=== PATIENT | male | born 1970 | race Caucasian/White ===

== ENCOUNTER 2016-08-23 22:47 | Emergency (ER) | payer OTHER ==
--- NOTE | 2016-08-24 00:05 | DIAGNOSTIC IMAGING REPORT ---
PROCEDURE: XR WRIST MIN 3 VIEWS - RIGHT INDICATION: PAIN TECHNIQUE: Three views of the right wrist. COMPARISON: None. FINDINGS: Normal mineralization. No fractures. Normal osseous alignment. No suspicious soft-tissue calcification or radiodense foreign bodies. IMPRESSION: 1. Intact right wrist.
--- NOTE | 2016-08-24 00:12 | ED NURSING NOTES ---
Clinical Report - Nurses [facility] [address] [place] [address] 08/23/2016 22:52 Patient: JIMMY PELAEZ JR TRIAGE Triage time 23:01. Acuity: LEVEL 4. Chief Complaint: RIGHT UPPER EXTREMITY PAIN, SWELLING and NUMBNESS. --23:08 Sarah Ray R.N. 23:01 08/23/16. BP: 146/99 taken on the left arm, while lying. HR: 88 (regular and normal rate). RR: 18 (regular and unlabored). O2 saturation: 100% on room air. Temp: 98.1 F (oral). Pain level now: 09/19. --23:08 Sarah Ray R.N. Weight: 87.9 kg stated. Height/Length: 72 inches Per Patient. BMI: 26.3. --23:01 Sarah Ray R.N. Medications Morphine Sulfate ER Beads Oral, BID. --23:06 Sarah Ray R.N. Allergies NSAIDs. Definite Severe(vomiting) --23:06 Sarah Ray R.N. Methocarbamol. (chest pain) Sulfa Antibiotics. Definite Severe(rash) --23:07 Sarah Ray R.N. History Arrived by private vehicle. Historian: patient. Unaccompanied (delmy). No injury occurred. This occurred today (around 930). ( pt c/o numbness to right hand, no injury). 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 PAST MEDICAL HX: Tetanus status: unknown. SOCIAL HX: Light tobacco smoker (cigarette)- less than 1/2 a pack per day. Occasional alcohol use. Last drink was just prior to arrival, 4 hours ago. No drug use. No infectious disease exposure. ABUSE ASSESSMENT: No report of abuse. SELF HARM ASSESSMENT: A self harm assessment was performed. The patient answered "no" to the question "Have you recently felt down, depressed, or hopeless?", "Have you noticed less interest or pleasure in doing things?", "Do you have thoughts of harming or killing yourself?", "Are you here because you tried to hurt yourself?", "Have you ever tried to hurt yourself before today?", "Have you recently had thoughts about harming or killing others?" and "Do you have any dangerous items in your possession?". FALL RISK ASSESSMENT: Fall risk assessment completed. No fall risk identified. NUTRITIONAL RISK ASSESSMENT: The nutritional risk assessment revealed no deficiencies. FUNCTIONAL ASSESSMENT: Functional assessment: no impairments noted. LEARNING NEEDS ASSESSMENT: The learning needs assessment revealed no barriers. SKIN INTEGRITY ASSESSMENT: Skin integrity risk assessment completed. No skin integrity risk identified. --23:08 Sarah Ray R.N. PROBLEMS: Vertigo. Carpal Tunnel Syndrome. Low vitamin d. Hypercholesterolemia. Back Injury. Back Pain. Degeneration of lumbar intervertebral disc. Arthritis. --23:07 Sarah Ray R.N. ADDITIONAL SURGERIES: Carpal Tunnel Surgery. Neck Surgery. --23:07 Sarah Ray R.N. Interventions ID band on patient. To treatment room. --23:08 Sarah Ray R.N. PHYSICAL ASSESSMENT Ambulatory to room. GENERAL / NEURO / PSYCH: Oriented X 4. Alert. Appears in no acute distress. Appears in pain. EXTREMITIES: Neuro-vascular status intact to the extremity. No upper extremity edema. Right wrist. Right wrist: tenderness. Limited ROM secondary to pain. Right distal radius: tenderness. Limited ROM at the wrist secondary to pain. SKIN: Skin intact. Skin is warm and dry. --23:09 Sarah Ray R.N. NURSING PROGRESS NOTES Call light placed in reach. Side rails up x 1. Patient ready for evaluation- chart flagged. --23:09 Sarah Ray R.N. Patient walked to radiology with [employer]. (23:44). --23:44 Sarah Ray R.N. Velcro upper extremity splint applied to right wrist by nurse. Distal pulses intact, sensation intact and motor within normal limits. Two patient identifiers checked. Call light placed in reach. Side rails up x 1. Bed placed in lowest position. Brakes of bed on. --00:19 Sarah Ray R.N. DISPOSITION / DISCHARGE Departure time: 0014. Condition at departure: unchanged and stable. No learning barriers present. Discharge instructions provided and reviewed with the patient. Reviewed referral to a primary care physician for followup. Activity restrictions (minimal use of injured extremity) reviewed. Patient verbalized understanding. Written instructions provided in Bengali. No warning instructions or medication instructions. The patient was discharged home and unaccompanied at time of discharge. He left the Emergency Department ambulatory and via private vehicle. Patient driving. --00:21 Sarah Ray R.N. 00:19 08/24/16. BP: deferred. HR: deferred. RR: deferred. O2 saturation: deferred. Temp: deferred. Pain level now deferred. --00:21 Sarah Ray R.N. Locked/Released at 08/24/2016 0:21 by Sarah Ray R.N.
--- NOTE | 2016-08-24 00:12 | ED ORDER SUMMARY ---
..... Patient: JIMMY PELAEZ JR OrderSheet [facility] VisitID: [id number] [address] [place] [address] 46y, M Registration Date/Time: 08/23/2016 ORDER SHEET Weight: 87.9 kg (stated) Allergies: NSAIDs, Methocarbamol, Sulfa Antibiotics GENERAL ORDERS: Wrist 3 or 4V Right Urgent (23:42 08/23/2016 Svetlana MCKENNA) (23:43 Pilo Hair.NGarret) Splint (UE) (Right) (Velcro - wrist) (00:07 08/24/2016 Svetlana MCKENNA) (0:15 HSoule) MEDICATION ORDERS: IV FLUIDS: ORDER SHEET NOTES: [Electronically signed by Sarah Ray R.N. (00:21 08/24/2016)] [Electronically signed by Hitesh Berry MD (16:23 08/26/2016)] [Electronically locked/signed by Sarah Ray R.N. (00:08/24/2016)]
--- NOTE | 2016-08-24 00:12 | ED CLINICAL REPORT ---
Clinical Report - Physicians/Mid Levels [facility] [address] [place] [address] 08/23/2016 22:52 [id number] Time Seen: 23:32 Aug 14 2016. Arrived- By private vehicle. Historian- patient. CPT: ER phys charges level 3 (#[id number]). HISTORY OF PRESENT ILLNESS Chief Complaint: UPPER EXTREMITY PAIN and ALTERED SENSATION. This started today and is still present. Severity is described as being moderate in degree. The quality is noted to be aching, "pain" and similar to prior episodes. Symptoms located in the area of the right wrist. No sensory loss or motor loss. Patient notes the possibility of an injury. Mechanism of injury- (Pt was working on his car when the pain came on .). Similar symptoms previously: As bad. Diagnosis: carpal tunnel syndrome. Recent medical care: Not recently seen/assessed. REVIEW OF SYSTEMS No fever, chills, headache, sore throat or cough. No skin rash, enlarged lymph nodes, abdominal pain, nausea or vomiting. No diarrhea, black stools, difficulty with urination, urinary frequency or hematuria. All systems otherwise negative, except as recorded above. PAST HISTORY Vertigo. Carpal Tunnel Syndrome. Low vitamin d. Hypercholesterolemia. Back Injury. Back Pain. Degeneration of lumbar intervertebral disc. Arthritis. ADDITIONAL SURGERIES: Carpal Tunnel Surgery. Neck Surgery. Medications: Morphine Sulfate ER Beads Oral, BID. Allergies: Methocarbamol. (chest pain) NSAIDs. Definite Severe(vomiting) Sulfa Antibiotics. Definite Severe(rash). SOCIAL HISTORY Heavy tobacco smoker (cigarette)- less than 1 pack per day. Occasional alcohol use. ADDITIONAL NOTES The nursing notes have been reviewed. PHYSICAL EXAM Vital Signs: 08/23/2016 23:01 BP: 146/99. HR: 88. RR: 18. O2 saturation: 100%. Temp: 98.1 F. Pain level now: 8/10. Appearance: Alert. Anxious. Patient in mild distress. Eyes: Eyes normal inspection. ENT: Pharynx normal. Neck: Normal inspection. Neck supple. CVS: Normal heart rate and rhythm. Respiratory: No respiratory distress. Back: Normal inspection. No tenderness. Skin: Skin intact. Skin warm. Normal skin color. Extremities: Upper extremities normal to inspection. Right wrist: moderate tenderness and mild swelling located in the area of the radial styloid and anatomic snuffbox and radial aspect of the wrist. Limited ROM secondary to pain (diminished extension). Neurovascular intact distally. (point tender over the extensor tendon of the right thumb. Has a positive tinnels of the right wrist.). No laceration, abrasion, ecchymosis, puncture wound or foreign body. No deformity. No joint effusion. Neuro: Oriented X 3. No motor deficit. No sensory deficit. LABS, X-RAYS, AND EKG X-Rays: Right wrist negative. PROGRESS AND PROCEDURES Splint Application: Velcro splint applied to right wrist. Splint applied by lloyd with direct supervision by me. Reassessed extremity following splint application. Neurovascular intact. Follow-up recommended within 7 days. Patient/family counseled. Disposition: Discharged. Condition: stable. CLINICAL IMPRESSION Sprain of the right radiocarpal joint. Recurrent carpal tunnel symptoms. INSTRUCTIONS Apply ice for 15-20 minutes three times a day for one days followed by moist heat 15-20 minutes three times a day for one weeks until better. Wear canvas splint until better. No strenuous activity. Warnings: Further evaluation is necessary. Your Current Medications: CONTINUE TAKING THE FOLLOWING MEDICATIONS: Morphine Sulfate ER Beads Oral : BID. Follow-up: Follow up with your doctor in one week. Call for an appointment. Understanding of the discharge instructions verbalized by patient. (Electronically signed by Hitesh Berry MD 08/26/2016 16:23)
--- NOTE | 2016-08-24 00:12 | ED CLINICAL REPORT ---
Clinical Report - Physicians/Mid Levels [facility] [address] [place] [address] 08/23/2016 22:52 [facility]: [id number] Time Seen: 23:32 Aug 14 2016. Arrived- By private vehicle. Historian- patient. CPT: ER phys charges level 3 (#[id number]). HISTORY OF PRESENT ILLNESS Chief Complaint: UPPER EXTREMITY PAIN and ALTERED SENSATION. This started today and is still present. Severity is described as being moderate in degree. The quality is noted to be aching, "pain" and similar to prior episodes. Symptoms located in the area of the right wrist. No sensory loss or motor loss. Patient notes the possibility of an injury. Mechanism of injury- (Pt was working on his car when the pain came on .). Similar symptoms previously: As bad. Diagnosis: carpal tunnel syndrome. Recent medical care: Not recently seen/assessed. REVIEW OF SYSTEMS No fever, chills, headache, sore throat or cough. No skin rash, enlarged lymph nodes, abdominal pain, nausea or vomiting. No diarrhea, black stools, difficulty with urination, urinary frequency or hematuria. All systems otherwise negative, except as recorded above. PAST HISTORY Vertigo. Carpal Tunnel Syndrome. Low vitamin d. Hypercholesterolemia. Back Injury. Back Pain. Degeneration of lumbar intervertebral disc. Arthritis. ADDITIONAL SURGERIES: Carpal Tunnel Surgery. Neck Surgery. Medications: Morphine Sulfate ER Beads Oral, BID. Allergies: Methocarbamol. (chest pain) NSAIDs. Definite Severe(vomiting) Sulfa Antibiotics. Definite Severe(rash). SOCIAL HISTORY Heavy tobacco smoker (cigarette)- less than 1 pack per day. Occasional alcohol use. ADDITIONAL NOTES The nursing notes have been reviewed. PHYSICAL EXAM Vital Signs: 08/23/2016 23:01 BP: 146/99. HR: 88. RR: 18. O2 saturation: 100%. Temp: 98.1 F. Pain level now: 8/10. Appearance: Alert. Anxious. Patient in mild distress. Eyes: Eyes normal inspection. ENT: Pharynx normal. Neck: Normal inspection. Neck supple. CVS: Normal heart rate and rhythm. Respiratory: No respiratory distress. Back: Normal inspection. No tenderness. Skin: Skin intact. Skin warm. Normal skin color. Extremities: Upper extremities normal to inspection. Right wrist: moderate tenderness and mild swelling located in the area of the radial styloid and anatomic snuffbox and radial aspect of the wrist. Limited ROM secondary to pain (diminished extension). Neurovascular intact distally. (point tender over the extensor tendon of the right thumb. Has a positive tinnels of the right wrist.). No laceration, abrasion, ecchymosis, puncture wound or foreign body. No deformity. No joint effusion. Neuro: Oriented X 3. No motor deficit. No sensory deficit. LABS, X-RAYS, AND EKG X-Rays: Right wrist negative. PROGRESS AND PROCEDURES Splint Application: Velcro splint applied to right wrist. Splint applied by lloyd with direct supervision by me. Reassessed extremity following splint application. Neurovascular intact. Follow-up recommended within 7 days. Patient/family counseled. Disposition: Discharged. Condition: stable. CLINICAL IMPRESSION Sprain of the right radiocarpal joint. Recurrent carpal tunnel symptoms. INSTRUCTIONS Apply ice for 15-20 minutes three times a day for one days followed by moist heat 15-20 minutes three times a day for one weeks until better. Wear canvas splint until better. No strenuous activity. Warnings: Further evaluation is necessary. Your Current Medications: CONTINUE TAKING THE FOLLOWING MEDICATIONS: Morphine Sulfate ER Beads Oral : BID. Follow-up: Follow up with your doctor in one week. Call for an appointment. Understanding of the discharge instructions verbalized by patient. (Electronically signed by Hitesh Berry MD 08/26/2016 16:23)
--- NOTE | 2016-08-24 00:12 | ED NURSING NOTES ---
Clinical Report - Nurses [place] [address] [place] [address] 08/23/2016 22:52 Patient: JIMMY PELAEZ JR TRIAGE Triage time 23:01. Acuity: LEVEL 4. Chief Complaint: RIGHT UPPER EXTREMITY PAIN, SWELLING and NUMBNESS. --23:08 Sarah Ray R.N. 23:01 08/23/16. BP: 146/99 taken on the left arm, while lying. HR: 88 (regular and normal rate). RR: 18 (regular and unlabored). O2 saturation: 100% on room air. Temp: 98.1 F (oral). Pain level now: 09/19. --23:08 Sarah Ray R.N. Weight: 87.9 kg stated. Height/Length: 72 inches Per Patient. BMI: 26.3. --23:01 Sarah Ray R.N. Medications Morphine Sulfate ER Beads Oral, BID. --23:06 Sarah Ray R.N. Allergies NSAIDs. Definite Severe(vomiting) --23:06 Sarah Ray R.N. Methocarbamol. (chest pain) Sulfa Antibiotics. Definite Severe(rash) --23:07 Sarah Ray R.N. History Arrived by private vehicle. Historian: patient. Unaccompanied (delmy). No injury occurred. This occurred today (around 930). ( pt c/o numbness to right hand, no injury). 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 PAST MEDICAL HX: Tetanus status: unknown. SOCIAL HX: Light tobacco smoker (cigarette)- less than 1/2 a pack per day. Occasional alcohol use. Last drink was just prior to arrival, 4 hours ago. No drug use. No infectious disease exposure. ABUSE ASSESSMENT: No report of abuse. SELF HARM ASSESSMENT: A self harm assessment was performed. The patient answered "no" to the question "Have you recently felt down, depressed, or hopeless?", "Have you noticed less interest or pleasure in doing things?", "Do you have thoughts of harming or killing yourself?", "Are you here because you tried to hurt yourself?", "Have you ever tried to hurt yourself before today?", "Have you recently had thoughts about harming or killing others?" and "Do you have any dangerous items in your possession?". FALL RISK ASSESSMENT: Fall risk assessment completed. No fall risk identified. NUTRITIONAL RISK ASSESSMENT: The nutritional risk assessment revealed no deficiencies. FUNCTIONAL ASSESSMENT: Functional assessment: no impairments noted. LEARNING NEEDS ASSESSMENT: The learning needs assessment revealed no barriers. SKIN INTEGRITY ASSESSMENT: Skin integrity risk assessment completed. No skin integrity risk identified. --23:08 Sarah Ray R.N. PROBLEMS: Vertigo. Carpal Tunnel Syndrome. Low vitamin d. Hypercholesterolemia. Back Injury. Back Pain. Degeneration of lumbar intervertebral disc. Arthritis. --23:07 Sarah Ray R.N. ADDITIONAL SURGERIES: Carpal Tunnel Surgery. Neck Surgery. --23:07 Sarah Ray R.N. Interventions ID band on patient. To treatment room. --23:08 Sarah Ray R.N. PHYSICAL ASSESSMENT Ambulatory to room. GENERAL / NEURO / PSYCH: Oriented X 4. Alert. Appears in no acute distress. Appears in pain. EXTREMITIES: Neuro-vascular status intact to the extremity. No upper extremity edema. Right wrist. Right wrist: tenderness. Limited ROM secondary to pain. Right distal radius: tenderness. Limited ROM at the wrist secondary to pain. SKIN: Skin intact. Skin is warm and dry. --23:09 Sarah Ray R.N. NURSING PROGRESS NOTES Call light placed in reach. Side rails up x 1. Patient ready for evaluation- chart flagged. --23:09 Sarah Ray R.N. Patient walked to radiology with [employer]. (23:44). --23:44 Sarah Ray R.N. Velcro upper extremity splint applied to right wrist by nurse. Distal pulses intact, sensation intact and motor within normal limits. Two patient identifiers checked. Call light placed in reach. Side rails up x 1. Bed placed in lowest position. Brakes of bed on. --00:19 Sarah Ray R.N. DISPOSITION / DISCHARGE Departure time: 0014. Condition at departure: unchanged and stable. No learning barriers present. Discharge instructions provided and reviewed with the patient. Reviewed referral to a primary care physician for followup. Activity restrictions (minimal use of injured extremity) reviewed. Patient verbalized understanding. Written instructions provided in Swedish. No warning instructions or medication instructions. The patient was discharged home and unaccompanied at time of discharge. He left the Emergency Department ambulatory and via private vehicle. Patient driving. --00:21 Sarah Ray R.N. 00:19 08/24/16. BP: deferred. HR: deferred. RR: deferred. O2 saturation: deferred. Temp: deferred. Pain level now deferred. --00:21 Sarah Ray R.N. Locked/Released at 08/24/2016 0:21 by Sarah Ray R.N.
--- NOTE | 2016-08-24 00:12 | ED ORDER SUMMARY ---
..... Patient: JIMMY PELAEZ JR OrderSheet [facility] VisitID: [id number] [address] [place] [address] 46y, M Registration Date/Time: 08/23/2016 ORDER SHEET Weight: 87.9 kg (stated) Allergies: NSAIDs, Methocarbamol, Sulfa Antibiotics GENERAL ORDERS: Wrist 3 or 4V Right Urgent (23:42 08/23/2016 Svetlana MCKENNA) (23:43 Pilo Hair.NGarret) Splint (UE) (Right) (Velcro - wrist) (00:07 08/24/2016 Svetlana MCKENNA) (0:15 HSoule) MEDICATION ORDERS: IV FLUIDS: ORDER SHEET NOTES: [Electronically signed by Sarah Ray R.N. (00:21 08/24/2016)] [Electronically signed by Hitesh Berry MD (16:23 08/26/2016)] [Electronically locked/signed by Sarah Ray R.N. (00:08/24/2016)]
--- NOTE | 2016-08-26 16:23 | ED DISCHARGE INSTRUCTIONS ---
Patient: JIMMY PELAEZ JR General Instructions [facility] VisitID: [id number] [place] [address] 46y, M Registration Date/Time: 08/23/2016 Sprain of the right radiocarpal joint. Recurrent carpal tunnel symptoms. INSTRUCTIONS Apply ice for 15-20 minutes three times a day for one days followed by moist heat 15-20 minutes three times a day for one weeks until better. Wear canvas splint until better. No strenuous activity. Warnings: Further evaluation is necessary. Your Current Medications: CONTINUE TAKING THE FOLLOWING MEDICATIONS: Morphine Sulfate ER Beads Oral : BID. Follow-up: Follow up with your doctor in one week. Call for an appointment. Understanding of the discharge instructions verbalized by patient. ADDITIONAL INFORMATION Sprain, Wrist A sprain is an injury to the ligaments or capsule that holds a joint together. There are no broken bones. Most sprains take about three to six weeks to heal. If the ligament is completely torn (severe sprain), it can take months to recover. Most wrist sprains are treated with a splint, wrist brace or elastic wrap for support. Severe sprains may require surgery. Home care The following guidelines will help you care for your injury at home: 1) Keep your arm elevated to reduce pain and swelling. This is very important during the first 48 hours. 2) Apply an ice pack (ice cubes in a plastic bag, wrapped in a towel) over the injured area for 20 minutes every 12 hours the first day. Continue with ice packs 34 times a day for the next two days, then as needed for the relief of pain and swelling. 3) You may use acetaminophen or ibuprofen to control pain, unless another pain medicine was prescribed.If you have chronic liver or kidney disease or ever had a stomach ulcer or GI bleeding, talk with your doctor before using these medicines. 4) If you were given a splint or brace, wear it for the time advised by your doctor. Follow-up care Follow up with your doctor as advised. Any X-rays you had today dont show any broken bones, breaks, or fractures. Sometimes fractures dont show up on the first X-ray. Bruises and sprains can sometimes hurt as much as a fracture. These injuries can take time to heal completely. If your symptoms dont improve or they get worse, talk with your doctor. You may need a repeat X-ray. When to seek medical care Get prompt medical attention if any of the following occur: Pain or swelling increases Fingers or hand becomes cold, blue, numb, or tingly Wrist Splint: Velcro A splint is designed to prevent movement of the bones, muscles and tendons of the wrist. Velcro wrist splints are used because of their comfort and convenience. In certain conditions, the splint can be removed when bathing or changing clothes. The condition you are being treated for will determine how long you should wear the splint and if it is safe to remove your splint before your next visit. If you are unsure, ask your nurse or doctor. Get Prompt Medical Attention if any of the following occur: -- Increased pain or swelling under the splint or in the hand or fingers -- Fingers or hand becomes cold, blue, numb or tingly You have been given the following additional information: Wrist Sprain Wrist Splint, Velcro No strenuous activity. (Electronically signed by Hitesh Berry MD 08/26/2016 16:23)
--- NOTE | 2016-08-26 16:23 | ED MAR SUMMARY ---
..... Medication Administration Record [facility] [address] [place] [place], [place] [id number] Patient: JIMMY PELAEZ Visit ID: [id number] 46y, M Weight: 87.9 kg Height/Length: 72 in BMI: 26.3 ALLERGIES: Methocarbamol, Sulfa Antibiotics, NSAIDs
--- NOTE | 2016-08-26 16:23 | ED MED RECONCILIATION SUMMARY ---
Patient: JIMMY PELAEZ Medication Reconciliation Report [facility] VisitID: [id number] [address] [place] [address] 46y, M Registration Date/Time: 08/23/2016 Weight: 87.9 kg Height/Length: 72 in. BMI: 26.3 ALLERGIES: Methocarbamol, NSAIDs, Sulfa Antibiotics The patient's Home Medications are listed below: CONTINUE TAKING THE FOLLOWING MEDICATIONS: Morphine Sulfate ER Beads Oral, BID The source(s) of the original Home Medication information: Not obtained. The following Medications were given to the patient in the Emergency Department: None. The following Medications were prescribed to the patient: None.
--- NOTE | 2016-08-26 16:23 | ED MAR SUMMARY ---
..... Medication Administration Record [facility] [address] [place], [place] [id number] Patient: JIMMY PELAEZ Visit ID: [id number] 46y, M Weight: 87.9 kg Height/Length: 72 in BMI: 26.3 ALLERGIES: Methocarbamol, Sulfa Antibiotics, NSAIDs
--- NOTE | 2016-08-26 16:23 | ED MED RECONCILIATION SUMMARY ---
Patient: JIMMY PELAEZ Medication Reconciliation Report [facility] VisitID: [id number] [address] [place] [address] 46y, M Registration Date/Time: 08/23/2016 Weight: 87.9 kg Height/Length: 72 in. BMI: 26.3 ALLERGIES: Methocarbamol, NSAIDs, Sulfa Antibiotics The patient's Home Medications are listed below: CONTINUE TAKING THE FOLLOWING MEDICATIONS: Morphine Sulfate ER Beads Oral, BID The source(s) of the original Home Medication information: Not obtained. The following Medications were given to the patient in the Emergency Department: None. The following Medications were prescribed to the patient: None.
== END 2016-08-24 00:14 | disposition home or self-care (01) ==
LOC: ED SRH 22:47
DX: S63.522A Sprain of radiocarpal joint of left wrist, initial encounter (principal); X58.XXXA Exposure to other specified factors, initial encounter; Y93.89 Activity, other specified; Y99.9 Unspecified external cause status; Y92.9 Unspecified place or not applicable; E78.00 Pure hypercholesterolemia, unspecified; Z79.891 Long term (current) use of opiate analgesic; Z88.2 Allergy status to sulfonamides; Z88.6 Allergy status to analgesic agent; Z88.8 Allergy status to other drugs, medicaments and biological substances